=== PATIENT | male | born 1945 | race Two or more races ===

== ENCOUNTER 2018-08-29 12:30 | Emergency (ER) | payer MEDICARE ==
--- NOTE | 2018-08-29 13:17 | EDM.PDOC ---
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 He has history of polyps and had cortisone injection and surgical removal of them about 4 years ago. He went to a doctor in [place] last week who prescribed him PCN nose spray for an infection that he states he doesn't have. He was also told he could not have surgery for 2 months. He comes in today because he is having difficulty breathing and would like help. He has difficulty breathing out, but is able to breathe in, and is able to sleep at night if he breathes through his mouth. Cleaning out his nose helps, but does not get rid of the difficulty breathing. He denies any F/C, SOB, cough, nose pain, nose bleed, or any other symptoms at this time. He has no PCP as he is from [place] only here temporarily. Nose Pain Score (Numeric/FACES): 9 - Related Data Allergies Allergy/AdvReac Type Severity Reaction Status Date / Time No Known Allergies Allergy Verified 08/29/18 12:42 Home Meds: Home Meds Loratadine/Pseudoephedrine [Claritin-D 12 Hour] 1 tab PO Q12HR #20 tab.er [Rx] Triamcinolone Acetonide [Nasacort AQ [place]] 16.5 gm NASBOTH DAILY #1 bottle [Rx] ED ROS ENT - Review of Systems Review Of Systems: ROS reveals no pertinent complaints other than HPI. ED EXAM, ENT - Physical Exam Exam: See Below Exam Limited By: Language Barrier General Appearance: Alert, WD/WN, No Apparent Distress Eye Exam: Bilateral Eye: EOMI, Normal Inspection, PERRL Ears: Normal External Exam, Hearing Grossly Normal Nose: Normal Inspection, Normal Mucousa, No Blood, Other (anterior nasal polyp seen near entrance of left nare). No: Nasal Deformity, Nasal Discharge, Nasal Swelling, Nasal Tenderness Mouth/Throat: Normal Inspection, Normal Gums, Normal Lips, Normal Oropharynx, Normal Teeth Respiratory/Chest: No Respiratory Distress, Lungs Clear, Normal Breath Sounds, No Accessory Muscle Use, Chest Non-Tender Cardiovascular: Normal Peripheral Pulses, Regular Rate, Rhythm, No Edema, No Gallop, No JVD, No Murmur, No Rub Psychiatric: Normal Affect, Normal Mood Skin: Warm, Dry, Intact, Normal Color, No Rash Course - Vital Signs Last Recorded V/S: Last Vital Signs Temp 98.2 F 08/29/18 12:39 Pulse 84 08/29/18 12:39 Resp 20 08/29/18 12:39 BP 132/80 08/29/18 12:39 Pulse Ox 95 08/29/18 12:39 Departure - Departure Time of Disposition: 13:22 Disposition: Home, Self-Care 01 Condition: Good Clinical Impression: Nasal polyp - Discharge Information *PRESCRIPTION DRUG MONITORING PROGRAM REVIEWED*: Not Applicable *COPY OF PRESCRIPTION DRUG MONITORING REPORT IN PATIENT LILIANA: Not Applicable Prescriptions: Loratadine/Pseudoephedrine [Claritin-D 12 Hour] 1 tab PO Q12HR #20 tab.er Triamcinolone Acetonide [Nasacort AQ [place]] 16.5 gm NASBOTH DAILY #1 bottle Instructions: Nasal Polyps Referrals: PCP,None [Primary Care Provider] - Additional Instructions: You were seen in the ED today for left nasal polyp. For now, recommend taking Claritin D in the morning for congestion relief and Nasacort at night to help shrink the polyp. For the Nasacort, spray each nostril, then rest head on bed for 2 minutes, and repeat one more time. It will take about 4-5 days to shrink. You can then follow up with Ear, Nose, Throat (ENT) specialist in [place]. You can call to make an appointment with Dr. Knox. Hoy te vieron en el servicio de urgencias para el plipo nasal suha. Por ahora, recomiendo yariel Claritin D por la maana para aliviar la congestin y Nasacort por la noche para ayudar a reducir el plipo. Para el Nasacort, roce cada fosa nasal, luego descanse la hyacinth en la cama kayode 2 minutos y repita wong vez ms. Yariel alrededor de 4-5 robertson para reducir el tamao. Paulo puede hacer un seguimiento con el especialista en [facility] ([facility] en [place]. Puede llamar al para hacer wong carlene con el Dr. Knox
== END 2018-08-29 13:51 | disposition home or self-care (01) ==
LOC: JD.ED 12:30
DX: J33.9 Nasal polyp, unspecified (principal)
CPT/HCPCS: 99282; 99283